=== PATIENT | female | born 1995 | race Caucasian/White ===

== ENCOUNTER 2021-12-16 07:27 | Emergency (ER) | payer OTHER, SELFPAY ==
--- NOTE | ~2021-12-16 | XR_ITS ---
EXAMINATION: XR femur RT min 2V DATE: 12/16/2021 08:02 INDICATION: Right thigh injury. Right thigh lateral muscle tear. TECHNIQUE: 2 views of right femur on 4 radiographs were obtained. COMPARISON: None. FINDINGS: Bone alignment is normal. No fracture. There is a benign bone island in proximal right femu r. Joint spaces are well maintained. There is no knee joint effusion. IMPRESSION: 1. Normal right femur. Reviewed, dictated and finalized at location A. IMPRESSION: 1. Normal right femur.
[2021-12-16 07:36] VITALS: BP 139/76; PULSE 96; RESP 18; TEMP 36.9; O2SAT 99
--- NOTE | 2021-12-16 07:45 | ED.LOWEXIN ---
HPI - Extremity Injury (Lower) General Chief Complaint: Extremity Injury, Lower Stated Complaint: right quad pain Time Seen by Provider: 12/16/21 07:33 Source: RN notes reviewed History of Present Illness HPI Narrative: Patient presents emergency department from home for right leg pain. 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 when she felt a tear in her right quadriceps region she states since that time she is had pain in her right leg there is worse with ambulation she denies directly falling on the leg or any direct trauma states that it is also painful to flex at the right hip she denies any numbness or tingling of the extremities denies any pain in the hip knee or ankle states she not taking pain medication patient is currently 14 weeks Related Data Home Medications Medication Instructions Recorded Confirmed omeprazole 20 mg capsule,delayed 20 mg PO DAILY 12/16/21 release ondansetron 4 mg disintegrating 4 mg PO Q6H PRN Nausea 12/16/21 tablet prenat.vits,betty,xak-hzlj-kzqyp 1 tablet PO DAILY 12/16/21 Allergies Allergy/AdvReac Type Severity Reaction Status Date / Time hydrocodone [From Vicodin] Allergy Itching Verified 12/16/21 07:40 Review of Systems Review of Systems: Gen.: Denies fevers or chills Musculoskeletal: See HPI Neuro: Denies numbness, tingling, weakness Skin: Denies rash Endo: Denies DM PMFSH Past Medical History Medical History (Updated 12/16/21 @ 08:40 by Jefry Simmons DO) Patient denies significant medical history Social History Social History (Updated 12/16/21 @ 07:46 by Jefry Simmons DO) Smoking status: Never smoker Exam Narrative: APPEARANCE: No acute distress, nontoxic, resting in bed Eyes: EOMI HEENT: Normocephalic, atraumatic, RESPIRATORY: No respiratory distress MUSCULOSKELETAl: Tender to palpation over the right anterior thigh with no swelling or ecchymosis seen there is no tenderness of the hip knee or ankle bilateral dorsalis pedis pulse 2+ neurovascular intact there is pain to the right hip with flexion of the right hip with keeping the leg straight NEURO: Awake and alert. Following commands, speech normal, no focal deficits SKIN:: Warm, dry. Normal Color no rash or lesions Course Course Emergency Course: Discussed with patient results of workup and diagnosis. Discussed need for follow-up with primary care, proper use of medication, and reasons to return to the emergency department. Patient understands and agrees to current treatment plan Vital Signs Vital signs: Vital Signs Temperature 98.4 F 12/16/21 07:36 Pulse Rate 96 12/16/21 07:36 Respiratory Rate 18 12/16/21 07:36 Blood Pressure 139/76 12/16/21 07:36 Pulse Oximetry 99 12/16/21 07:36 Temperature 98.4 F 12/16/21 07:36 Pulse Rate 96 12/16/21 07:36 Respiratory Rate 18 12/16/21 07:36 Blood Pressure 139/76 12/16/21 07:36 Pulse Oximetry 99 12/16/21 07:36 MDM - Extremity Injury (Lower) Imaging Data Radiologist's impression: ITS Impressions Femur X-Ray 12/16/21 08:06 IMPRESSION: 1. Normal right femur. Discharge Plan Discharge Clinical Impression: Strain of right quadriceps muscle Patient Disposition: Home, Self-Care Condition: Stable Instructions: Antibiotic Form, Muscle Strain (ED) Additional Instructions: Return for increasing pain numbness or tingling in the extremities or any other symptoms of concern. Take vcra-rhk-exmiuex Tylenol for pain as directed on the bottle Prescriptions: No Action omeprazole 20 mg Capsule,Delayed Release(Dr/Ec) 20 mg PO DAILY ondansetron [Zofran ODT] 4 mg Tablet,Disintegrating 4 mg PO Q6H PRN (Reason: Nausea) Vitamin Tablet 1 tablet PO DAILY Follow-up/Referrals: PHYSICIAN NOT ON STAFF,NONSTAFF [Primary Care Provider] - (Follow-up with your primary care physician in 1 to 2 days for further treatment and
[2021-12-16] MEDS: ACETAMINOPHEN 500 MG TABLET 1000 MG PO (07:48)
[2021-12-16 11:43] VITALS: BP 122/70; PULSE 85; RESP 16; O2SAT 100
== END 2021-12-16 11:44 | disposition home or self-care (01) ==
PROVIDERS: Emergency Provider Emergency Medicine
DX: S76.111A Strain of right quadriceps muscle, fascia and tendon, initial encounter (principal); X50.0XXA Overexertion from strenuous movement or load, initial encounter
CPT/HCPCS: 73552; 99283; A9270

== ENCOUNTER 2025-04-27 07:57 | Emergency (ER) | payer OTHER, BC, SELFPAY ==
[2025-04-27 08:02] VITALS: BP 135/80; PULSE 85; RESP 14; TEMP 36.5; O2SAT 100
--- NOTE | 2025-04-27 08:08 | ED_ITS ---
HPI - Wound/Laceration General Chief Complaint: Wound/Laceration Stated Complaint: LIP INJURY Time Seen by Provider: 04/27/25 08:02 Source: patient Mode of arrival: ambulatory Limitations: no limitations History of Present Illness HPI narrative: 29-year-old otherwise healthy here with a complaint of laceration to her lower lip sustained prior to coming to the ER. Patient states that her puppy dog jumped on her and accidentally scratched her lip. Onset (ago): minute(s) (30) Related Data Home Medications ?Medication ?Instructions ?Recorded ?Confirmed ?Last Taken ?Type omeprazole 20 mg capsule,delayed 20 mg PO DAILY Unknown History release ondansetron 4 mg disintegrating 4 mg PO Q6H PRN Nausea 12/16/21 Unknown History tablet prenat.vits,betty,wva-dldn-hofjh 1 tablet PO DAILY 12/16 Unknown History Allergies Allergy/AdvReac Type Severity Reaction Status Date / Time hydrocodone (From Vicodin) Allergy Itching Verified 04/27/25 07:58 Review of Systems Review of Systems: All systems reviewed & are unremarkable except as noted in HPI and below Constitutional: Constitutional: Reports no additional constitutional complai nts Eyes: Eyes: Reports no additional eye complaints ENT: Reports as per HPI Cardiovascular: Cardiovascular: Reports no additional cardiovascular complaints Respiratory: Respiratory: Reports no additional respiratory complaints Gastrointestinal: Gastrointestinal: Reports no additional gastrointestinal complaints Musculoskeletal: Musculoskeletal: Reports no additional musculoskeletal complaints PMFSH Past Medical History Medical History Patient denies significant medical history Social History Social History Smoking status: Never smoker Exam Narrative: GENERAL: Well-appearing, well-nourished, and in no acute distress. HEAD: Normocephalic, atraumatic. EYES: PERRLA and EOMI. ENT: Nares clear, no rhinorrhea or epistaxis. Mucous membranes moist. a small lac on the lower lip on the buccal mucosa about 0.5 cm appears to be superficial with minimal bleeding NECK: Supple. CHEST: Clear to auscultation. No respiratory distress. HEART: Regular rate and rhythm. No murmur heard. Normal peripheral pulses. . EXTREMITIES: Normal range of motion. No edema. SKIN: Warm, dry, no rash. NEURO: No focal deficits. Alert and oriented x3. PSYCH: Normal mood and affect. Course Course Emergency Course: advised her to take antibiotic as prescribed .no sutures required . Vital Signs Vital signs: Vital Signs Temperature 36.5 C 04/27/25 08:02 Pulse Rate 85 04/27/25 08:02 Respiratory Rate 14 04/27/25 08:02 Blood Pressure 135/80 04/27/25 08:02 Pulse Oximetry 100 04/27/25 08:02 Oxygen Delivery Room Air 04/27/25 08:02 Temperature 36.5 C 04/27/25 08:02 Pulse Rate 85 04/27/25 08:02 Respiratory Rate 14 04/27/25 08:02 Blood Pressure 135/80 04/27/25 08:02 Pulse Oximetry 100 04/27/25 08:02 Oxygen Delivery Room Air 04/27/25 08:02 [facility] Differential Diagnosis Differential Diagnosis: laceration, abrasion Discharge Plan Discharge Clinical Impression: Laceration of buccal mucosa without complication Qualifiers: Encounter type: initial encounter Qualified Code(s): S01.512A - Laceration w ithout foreign body of oral cavity, initial encounter Patient Disposition: Home Condition: Stable Instructions: Antibiotic Form, Laceration (ED) Patient Language: Syriac Prescriptions: New amoxicillin-pot clavulanate 875-125 mg tablet 1 tablet PO Q12H Qty: 14 0RF No Action omeprazole 20 mg Capsule,Delayed Release(Dr/Ec) 20 mg PO DAILY ondansetron [Zofran ODT] 4 mg Tablet,Disintegrating 4 mg PO Q6H PRN (Reason: Nausea) Vitamin Tablet 1 tablet PO DAILY Follow-up/Referrals: PHYSICIAN NOT ON STAFF,NONSTAFF [Primary Care Provider] Johnny Martin MD [Physician, Family Practice] Time of Disposition: :
--- OUTSIDE RECORDS SUMMARY | 2025-04-27 08:18 | XMS_ITS | Clinical Summary ---
Author Organization [facility] [address] Address [address] [place] [address] Care Team Providers Care Vp Analysis Name Role Phone Elodia Pickard Susannah CALDWELL Primary Care Provider Rachel Eastman MD Unavailable [phone] Allergies Active Allergy Reactions Criticality Noted Date Comments Hydrocodone Itching Low 11/20/2019 Hydrocodone-Acetaminophen Other (See comments) Low 12/28/2018 itcheness Medications ALPRAZolam (XANAX) 0.5 mg tabletIndication s:Anxiety Take 1 tablet (0.5 mg total) by mouth daily as needed for anxiety 30 tablet 1 3 Active midodrine (PROAMATINE) 5 mg tabletIndication s:Symptomatic Orthostatic Hypotension Take 1 tablet (5 mg total) by mouth 3 (three) times a day 90 tablet 4 Active Additional Information Patient not taking.Reported on 12/16/2024 Active Problems Problem Noted Date Diagnosed Date Orthostasis 08/04/2023 Overview (08/04/2023): Labs and EKG WNL, advised small frequent meals, change positions slowly, will refer to cardiology for further workup. Well adult exam 02/08/2023 Assessment & Plan (02/08/2023 3:47 PM CDT): -Check in 1 year. Recommend Pap smears at least every 3 years starting at age 21, unless otherwise indicated. recommend flu shot yearly. Recommend heart healthy diet and 30 minutes of exercise daily. Recommend mammogram yearly starting at 40 y/o. Colon cancer screening starting at 50. Constipation 08/11/2021 Overview (08/11/2021): Start trulance. Discussed uses, risks and side effects. Anxiety 02/15/2021 Assessment & Plan (02/08/2023 3:46 PM CDT): Restart xanax 0.5mg Uses,risks,se's discussed Follow up in 4 weeks if needed Gave names of counselors, and discussed going to carrier depression 05/01/2020 Low libido 05/01/2020 Resolved Problems Problem Noted Date Diagnosed Date Resolved Date History of depression 04/04/20192019 Overview (04/04/2019): During HS: no meds since then Immunizations Immunization Administration Dates Next Due DTaP 5 Pertussis 12/18/1998, 5,1993,09/20,1993 Hep A, Unspecified 11/21/2007 Hep B Vaccine 03/12/2019,02/06/2019 Hep B, Unspecified 1993,1993, 994 IPV 12/18/1998, 4,1993,07/19 Influenza, Quadrivalent, Sylwia l Culture-based MDCK, Preservative Free, Antibiotic Free, Intramuscular 04/12/2023,02/28/2019 Influenza, Quadrivalent, Rec ombinant, Egg Free, Preservative Free, Intramuscular 02/21/2020 Influenza, Quadrivalent, Spl it, Preservative Free, Intramuscular 03/23/2022,02/12/2021 Influenza, Trivalent, Preser vative Free, Intramuscular 03/14/2017 MMR 02/13/2019,10/27/1994 MMRV 12/18/1998 Meningococcal ACWY, Unspecified 11/21/2007 PPD TEST 12/28/2018 Tdap 03/23/2022, 0,12/28/2018,06/24 Varicella 02/16/2021(Deferred: History of disease) Surgical History Surgery Date Site/Laterality Comments NO PAST SURGERIES Medical History Medical History Date Comments Asthma as a child Depression Anxiety Chronic constipation POTS (postural orthostatic tachycardia syndrome) Family History Medical History Relation Name Comments Diabetes Maternal Grandmother Jessica Garcia Heart disease Paternal Grandfather Christopher Jenkins Breast cancer Neg Hx Colon cancer Neg Hx Ovarian cancer Neg Hx Uterine cancer Neg Hx Relation Name Status Comments Father Alive Maternal Grandfather Alive Maternal Grandmother Jessica Garcia Alive Mother Alive Paternal Grandfather Christopher Jenkins Paternal Grandmother Alive Sister 1 Alive Social History Tobacco Use Types Packs/Day Years Used Date Smoking Tobacco: Former Vaping Q uit: 2018 Smokeless Tobacco: Never Tobacco Cessation:Counseling Given: Not Answered Alcohol Use Standard Drinks/Week Comments Yes 0 (1 standard drink = 0.6 oz pur e alcohol) Social Connection and Isolation Panel Answer Date Recorded In a typical week, how many times do you talk on the phone with family, friends, or neighbors? More than three times a week 06/04/2022 How often do you get togethe r with friends or relatives? More than three times a week 06/04/2022 How often do you attend chur ch or anabaptist services? Patient declined 06/04/2022 Do you belong to any clubs o r organizations such as baptist groups, unions, fraternal or athletic groups, or school groups? Patient declined 06/04/2022 How often do you attend meet ings of the clubs or organizations you belong to? Patient declined 06/04/2022 Are you , , di vorced, , never , or living with a partner? Patient declined 06/04/2022 AUDIT-C Answer Date Recorded Q1: How often do you have a drink containing alc ohol? Never 06/04/2022 Average Number of Drinks Not on file 023 Q3: How often do you have si x or more drinks on one occasion? Never 06/04/2022 Overall Financial Resource Strain (CARDIA) Answe r Date Recorded How hard is it for you to pa y for the very basics like food, housing, medical care, and heating? Not hard at all 06/04/2022 PHQ-2 Answer Date Recorded PHQ-2 Total Score (If total score is 3 or more points, staff should administer the PHQ-9) 0 02/08/2023 [facility] - Occupational Stress Questionnaire Answer Date Recorded Do you feel stress - tense, restless, nervous, or anxious, or unable to sleep at night because your mind is troubled all the time - these days? To some extent 06/04/2022 Hunger Vital Sign Answer Date Recorded Within the past 12 months, y ou worried that your food would run out before you got the money to buy more. Never true 06/04/19 23 Within the past 12 months, t he food you bought just didn't last and you didn't have money to get more. Never true 06/04/2022 PRAPARE - Transportation Answer Date Re corded In the past 12 months, has l ack of transportation kept you from medical appointments or from getting medications? No 05/16 In the past 12 months, has l ack of transportation kept you from meetings, work, or from getting things needed for daily living? No 06/04/2022 Housing Stability Vital Sign Answer Myron e Recorded In the last 12 months, was t here a time when you were not able to pay the mortgage or rent on time? No 06/04/2022 In the last 12 months, how many places have you lived? 2 06/04/2022 In the last 12 months, was t here a time when you did not have a steady place to sleep or slept in a retirement (including now)? No 06/04/2022 [place] Depression Scale Answer Date Recorded [place] Depression Scale Total 8 07/13/2022 The thought of harming myself has occurred to me . Never 07/13/2022 Personal Safety Answer Date Recorded Getting School Help Needed Denies 05/17 Comments No Sex and Gender Information Value Date Recorded Sex Assigned at Not on file Legal Sex Female 7:43 PM [employer] Gender Identity Not on file Sexual Orientation Not on file Obstetrics History Para Term AB IAB SAB Ectopic Multiple Livin g Live Births 2 2 2 0 0 0 0 0 0 2 2 Date Outcome GA Total Labor Labor/2nd/3rd Weight Sex Type Anes PTL Shira A1 A5 Name Clin 2019 Term 40w 1d 3.374 kg (7 lb 7 oz) M Vag-S pont Epidur al N Livin g Oberade efeman n, Miriam N., CNM Complications:None Delivery Location:[facility] 2022 Term 38w 5d 6h 08m 5h 55m/0h 03m/0h 10m 3.73 kg (8 lb 3.6 oz) M Vag-S pont Epidur al Livin g 8 9 LEENA MENESES Axelerade efeman n, Miriam N., CNM Delivery Location:[facility] ([facility]) Last Filed Vital Signs Vital Sign Reading Time Taken Comments Blood Pressure 116/62 12/16/2024 2:18 PM CDT Pulse 87 11/17/2023 11:09 AM CDT Temperature 36.6 C (97.8 F) 06/02/2023 8:03 AM SODA MAKER Respiratory Rate 18 06/02/2023 8:03 AM SODA MAKER Oxygen Saturation 98% 11/17/2023 11:09 AM CDT Inhaled Oxygen Concentration - - Weight 68 kg (150 lb) 12/16/2024 2:18 PM CDT Height 167.6 cm (5' 5.98) 12/16/2024 2:18 PM CD T Body Mass Index 24.22 12/16/2024 2:18 PM CDT Plan of Treatment Health Maintenance Due Date Last Done Comments HPV Vaccines (1 - 3-dose SCDM series) 2020 Depression Screening 02/09/2024 02/08/2023, 07/13/2022, 08/11/2021, Additional history exists Cervical Cancer Screening 09/14/20242023, 09/15/2023, 05/01/2020 Covid-19 Vaccine ( season) 2025 06/04/2021, 06/26/2020, 05/29/2020 Influenza Vaccine (#1) 2025 3, 03/23/2022, 02/12/2021, Additional history exists Regular Well Visit/Exam 18-64 12/16/2025 12/16/2024, 09/15/2023, 02/08/2023, Additional history exists DTaP/Tdap/Td Vaccine (10 - Td or Tdap) 03/23/2032 03/23/2022, 08/28/2019, 12/28/2018, Additional history exists Varicella Vaccines Discontinued 12/18/1998 Hepatitis B Screening Completed 03/12/2019 , 02/06/2019, 1993, Additional history exists Hepatitis C Screening Completed 11/01/2021, 019 Pneumococcal vaccine <65 Aged Out No longer eligible based on patient's age to complete this topic Procedures Procedure Name Priority Date/Time Associated Diagnosis Comments HIGH RISK HPV DNA DETECTION WITH GENOTYPING Routine 09/15/2023 10:07 AM CDT Encounter for screening for malignant neoplasm of cervix HEPATITIS C ANTIBODY Routine 11/01/2021 12:16 PM CDT Positive test from Last 3 Months or Most Recently Relevant to Health Maintenance Results * High Risk HPV DNA Detection with Genotyping (Molecular component) (09/15/2023 10:07 AM CDT) HPV HR 16 Not Detected Not Detected [facility] Comment:Testing performed by : [facility], [address] [place]., [address] HPV HR 18 Not Detected Not Detected [facility] Comment:Testing performed by : [facility], [address] [place]., [address] HPV HR Non 16/18 Not Detected Not Detected [facility] Comment: Interpretive Data Nucleic acid amplification for detection of high-risk Human Papilloma virus (HPV) is performed by the Ricardo Fabienne 6800 HPV test. This assay specifically detects HPV-16 and HPV-18 genotypes. The following HPV genotypes are detected as high-risk HPV: HPV-31, 33, 35, ,39, 45, 51, 52, 56, 58, 59, 66, and 68. This assay has been approved by the [place] Food and Drug Administration for detection of HPV in cervical specimens collected by a physician using an endocervical brush/spatula or cervical broom and placed in the ThinPrep Pap Test PreservCyt collection containers. The performance characteristics of this test have been verified by the [facility] Molecular Infectious Disease laboratory. Correlate with separately reported cytology results, as applicable. Interpretive data last revised 23 Testing performed by: [facility], [address] [facility], [place]., [address] Endocervical 09/15/2023 10:0 7 AM CDT 09/15/2023 5:06 PM CDT Narrative [facility] - 09/16/2023 5:06 AM CDT Clinical history and diagnosis->routine Number of vials->1 Testing type->Screening Last menstrual period (date if known)->09/10/2023 Taj Gutierrez MD LAB BODY FLUIDS AND STOO LS ORDERABLES Final Result Performing Organization Address [facility] de Phone Number [facility] [address] [facility] [place] [address] [facility] * Hepatitis C antibody (11/01/2021 12:16 PM CDT) Hep C Ab Nonreactive Nonreactive [facility] Comment: Interpretive Data Nonreactive: Antibodies to HCV not detected. Does NOT exclude the possibility of recent exposure to HCV. Equivocal: Equivocal for HCV antibodies. Supplemental molecular testing will be automatically performed to determine infection status in accordance with current CDC screening recommendations. Reactive: Positive for HCV antibodies. This may represent current or past HCV infection. Supplemental molecular testing will be automatically performed to determine current infection status in accordance with current CDC screening recommendations. Interpretive data was last revised on 2019. Blood 11/01/2021 12:1 6 PM CDT 11/01/2021 6:49 PM CDT Fermin Seay MD LAB MICROBIOLOGY - GENERAL ORDERABLES Final Result Performing Organization Address [facility] de Phone Number [address] [place] [address] from Last 3 Months or Most Recently Relevant to Health Maintenance Insurance [employer] [place] [facility] CHOICE [employer] [place] Advance Directives For more information, please contact: [phone] * Full Code (Latest Code Status on File) Date Activated Date Inactivated Comments 06/04/2022 8:50 AM 06/06/2022 7:08 PM * Full Code Date Activated Date Inactivated Comments 06/04/2022 8:48 AM 06/04/2022 8:50 AM Full CPR in case of cardiopulmonary arrest * Full Code Date Activated Date Inactivated Comments 06/04/2022 12:40 AM 06/04/2022 8:48 AM Full CPR in case of cardiopulmonary arrest Care Teams Vp Analysis Relationship Specialty Start Date End Date Elodia Pickard NP PCP - General Internal Medicine 02/09/21 Rachel Eastman MD [address] [place] [id number] Consulting Physician Obstetrics and Gynecology 06/06/22
== END 2025-04-27 08:25 | disposition home or self-care (01) ==
LOC: ANHED 08:16
PROVIDERS: Emergency Provider Family Medicine
DX: S01.512A Laceration without foreign body of oral cavity, initial encounter (principal); W54.1XXA Struck by dog, initial encounter
CPT/HCPCS: 99283